=== PATIENT | female | born 1955 | race Caucasian/White ===

== ENCOUNTER 2017-05-19 07:59 | Emergency (ER) | payer OTHER ==
[~2017-05-19] VITALS: Ht 157.5 cm; Wt 64.5 kg
[~2017-05-19 07:59] MED LIST: ASPI-1182 PO; GLIP10TA9 PO; HYDR-4031 PO; LISI-618 PO; LOVA10TA2 PO; METF500T4 PO; NAPR-58 PO; RANI150T12 PO
[2017-05-19 08:27] LABS: GLUCOSE,POINT OF CARE 241 MG/DL (70-110)
[2017-05-19] MEDS ORDERED: LIDOCAINE HCL 1% 10 ML VIAL INJ ONE (10:30)
[2017-05-19 11:30] VITALS: BP 132/82
== END 2017-05-19 12:02 | disposition home or self-care (01) ==
LOC: EMS 08:01
DX: S01.81XA Laceration without foreign body of other part of head, initial encounter (principal); S20.211A Contusion of right front wall of thorax, initial encounter; E11.9 Type 2 diabetes mellitus without complications; I10 Essential (primary) hypertension; E78.00 Pure hypercholesterolemia, unspecified; F17.210 Nicotine dependence, cigarettes, uncomplicated; Z88.1 Allergy status to other antibiotic agents; Z91.041 Radiographic dye allergy status; V78.6XXA Passenger on bus injured in noncollision transport accident in traffic accident, initial encounter; Y93.89 Activity, other specified; Y92.89 Other specified places as the place of occurrence of the external cause; Y99.2 Volunteer activity
CPT/HCPCS: 12002; 70450; 70486; 71010; 82962; 99284; J3490

== ENCOUNTER 2017-05-24 10:38 | Emergency (ER) | payer OTHER ==
[~2017-05-24] VITALS: Ht 157.5 cm; Wt 65.0 kg
[2017-05-24 10:57] LABS: GLUCOSE,POINT OF CARE 196 MG/DL (70-110)
[2017-05-24] MEDS ORDERED: GABA-529 PO (10:59)
[2017-05-24] MEDS ORDERED: KETOROLAC TROMETHAMINE 30 MG/ML VIAL IVP ONE (11:30)
[2017-05-24 12:46] VITALS: BP 146/72
== END 2017-05-24 12:49 | disposition home or self-care (01) ==
LOC: EMS 10:42
DX: M54.5 Low back pain (principal); R11.0 Nausea; E11.9 Type 2 diabetes mellitus without complications; E78.00 Pure hypercholesterolemia, unspecified; I10 Essential (primary) hypertension; F17.210 Nicotine dependence, cigarettes, uncomplicated; Z48.02 Encounter for removal of sutures; Z88.5 Allergy status to narcotic agent; Z88.2 Allergy status to sulfonamides; Z88.6 Allergy status to analgesic agent; Z91.041 Radiographic dye allergy status; Z79.82 Long term (current) use of aspirin
CPT/HCPCS: 82962; 96374; 99284; J1885

== ENCOUNTER 2020-07-10 07:13 | Emergency (ER) | payer OTHER ==
[~2020-07-10] VITALS: Ht 162.6 cm; Wt 72.7 kg
[~2020-07-10 07:13] MED LIST changes: +ASPI-1111 PO; -ASPI-1182 PO; +GABA-1216 PO; +METF-960 PO; -METF500T4 PO; +NAPR-1025 PO; -NAPR-58 PO; +RANI-662 PO; -RANI150T12 PO
[2020-07-10] MEDS ORDERED: GABA-1181 PO (07:19)
[2020-07-10] MEDS ORDERED: FAMO20 PO (07:19)
[2020-07-10 07:44] LABS: GLUCOSE,POINT OF CARE 160 MG/DL (70-110)
[2020-07-10] MEDS ORDERED: HYDROCODONE/ACETAMINOPHEN 5-325 MG TABLET PO ONE (08:00)
[2020-07-10 09:01] VITALS: BP 144/94
== END 2020-07-10 09:15 | disposition home or self-care (01) ==
LOC: EMS 07:13
DX: S80.01XA Contusion of right knee, initial encounter (principal); S20.211A Contusion of right front wall of thorax, initial encounter; E11.9 Type 2 diabetes mellitus without complications; E78.00 Pure hypercholesterolemia, unspecified; I10 Essential (primary) hypertension; Z87.891 Personal history of nicotine dependence; Z79.899 Other long term (current) drug therapy; Z79.84 Long term (current) use of oral hypoglycemic drugs; Z79.82 Long term (current) use of aspirin; Z88.2 Allergy status to sulfonamides; Z88.5 Allergy status to narcotic agent; Z91.040 Latex allergy status; W19.XXXA Unspecified fall, initial encounter; Y93.9 Activity, unspecified; Y92.89 Other specified places as the place of occurrence of the external cause; Y99.8 Other external cause status
CPT/HCPCS: 71045-TC

== ENCOUNTER 2020-09-23 10:33 | Emergency (ER) | payer OTHER ==
[~2020-09-23] VITALS: Ht 144.8 cm; Wt 58.2 kg
[~2020-09-23 10:33] MED LIST changes: +FAMO20 PO; +GABA-1181 PO; -HYDR-4031 PO; -NAPR-1025 PO; -RANI-662 PO
[2020-09-23 10:51] VITALS: BP 146/61
[2020-09-23 10:53] LABS: GLUCOSE,POINT OF CARE 128 MG/DL (70-110)
[2020-09-23] MEDS ORDERED: NAPHAZOLINE/PHENIR 0.025-0.3% 15 ML OPHTHALMIC SOLUTION OU ONE (12:15)
[2020-09-23] MEDS ORDERED: OLOPATADINE HCL 0.1% 5 ML OPHTHALMIC SOLUTION OU ONE (12:30)
[2020-09-23] MEDS ORDERED: PROPARACAINE HCL 0.5% 15 ML OPHTHALMIC SOLUTION OU ONE (13:00)
[2020-09-23] MEDS ORDERED: FLUORESCEIN SODIUM 1 MG STRIP OD ONE (13:00)
[2020-09-23] MEDS ORDERED: ERYTHROMYCIN 0.5% 3.5 GM TUBE OPHTHALMIC OINTMENT OU ONE (13:15)
== END 2020-09-23 13:54 | disposition home or self-care (01) ==
LOC: EMS 10:43
DX: S05.02XA Injury of conjunctiva and corneal abrasion without foreign body, left eye, initial encounter (principal); S05.01XA Injury of conjunctiva and corneal abrasion without foreign body, right eye, initial encounter; H10.13 Acute atopic conjunctivitis, bilateral; J45.909 Unspecified asthma, uncomplicated; E11.9 Type 2 diabetes mellitus without complications; E78.00 Pure hypercholesterolemia, unspecified; I10 Essential (primary) hypertension; F17.210 Nicotine dependence, cigarettes, uncomplicated; Z90.89 Acquired absence of other organs; Z79.84 Long term (current) use of oral hypoglycemic drugs; Z79.82 Long term (current) use of aspirin; Z88.5 Allergy status to narcotic agent; Z91.041 Radiographic dye allergy status; Z91.040 Latex allergy status; Z88.6 Allergy status to analgesic agent; X58.XXXA Exposure to other specified factors, initial encounter; Y93.89 Activity, other specified; Y92.89 Other specified places as the place of occurrence of the external cause; Y99.8 Other external cause status

== ENCOUNTER 2021-08-29 18:04 | Emergency (ER) | payer MEDICARE, MEDICAID ==
[~2021-08-29] VITALS: Ht 157.5 cm; Wt 65.0 kg
[~2021-08-29 18:04] MED LIST changes: -ASPI-1111 PO; +ASPI-1444 PO; -LISI-618 PO; +LISI20TA24 PO; +METF-1211 PO; -METF-960 PO
[2021-08-29 18:31] LABS: BASOPHILS % (AUTO) 0.4 % (0.0-2.0); HEMATOCRIT 38.2 % (36-46); HEMOGLOBIN 13.1 g/dL (12.0-16.0); LYMPHOCYTES # (AUTO) 2.6 K/uL (1.0-4.8); LYMPHOCYTES % (AUTO) 22.2 % (22.0-44.0); MEAN CORPUSCULAR HEMOGLOBIN 31.6 pg (26.0-34.0); MEAN CORPUSCULAR HGB CONC 34.4 G/dL (31.0-37.0); MEAN CORPUSCULAR VOLUME 92 fL (80-100); MONOCYTES % (AUTO) 8.9 % (2.0-9.0); NEUTROPHILS # (AUTO) 7.7 K/uL (1.8-7.7); NEUTROPHILS % (AUTO) 66.5 % (40.0-70.0); PLATELET COUNT (AUTO) 340 K/uL (150-450); RED BLOOD CELL COUNT(AUTO) 4.15 MIL/uL (4.00-5.20); RED CELL DISTRIBUTION WIDTH 13.2 % (11.5-14.5)
[2021-08-29 18:39] LABS: ANION GAP 6 mmol/L (8-16); CALCIUM, TOTAL 9.2 mg/dL (8.8-10.5); CARBON DIOXIDE 30 mmol/L (22-29); CHLORIDE 98 mmol/L (98-107); CREATININE 0.79 mg/dL (0.60-1.30); GLOMERULAR FILTR. RATE CALC > 60 mL/min (>60); GLUCOSE,RANDOM 140 mg/dL (70-110); POTASSIUM 3.7 mmol/L (3.5-5.1); SODIUM SERUM 134 mmol/L (136-145); UREA NITROGEN, BLOOD 17 mg/dL (7-18)
[2021-08-29 18:40] LABS: PROTHROMBIN TIME 10.8 SEC (9.4-11.6)
[2021-08-29 19:04] LABS: ALANINE AMINOTRANSFERASE 30 U/L (12-78); ALBUMIN 4.2 g/dL (3.4-5.0); ALKALINE PHOSPHATASE 88 U/L (46-116); ASPARTATE AMINOTRANSFERASE 23 U/L (15-37); BILIRUBIN,TOTAL 0.3 mg/dL (0.1-1.0); CREATINE KINASE, TOTAL ONLY 137 U/L (26-192); PHOSPHORUS 3.7 mg/dL (2.5-4.9); TOTAL PROTEIN, SERUM 8.1 g/dL (6.4-8.2)
[2021-08-29 19:06] LABS: B-TYPE NATRIURETIC PEPTIDE 22 pg/mL (0-100)
[2021-08-29 19:33] LABS: APPEARANCE,URINE CLEAR (CLEAR); BILIRUBIN,URINE NEGATIVE (NEGATIVE); GLUCOSE, URINE (UA) 100 mg/dL (NEGATIVE); KETONES,URINE NEGATIVE (NEGATIVE); LEUKOCYTE ESTERASE ,URINE SMALL (NEGATIVE); NITRATE,URINE NEGATIVE (NEGATIVE); OCCULT BLOOD,URINE NEGATIVE (NEGATIVE); PH,URINE 7.5 (5.0-8.0); PROTEIN,URINE NEGATIVE (NEGATIVE); UROBILINOGEN,URINE 0.2 mg/dL (<=1.0)
[2021-08-29 19:58] LABS: RBC,URINE None Seen /HPF (0-2)
[2021-08-29 19:59] LABS: BACTERIA,URINE None Seen /HPF (None Seen)
[2021-08-29] MEDS: CEPHALEXIN MONOHYDRATE 500 MG CAPSULE PO ONE (20:21)
[2021-08-29] MEDS ORDERED: SODIUM CHLORIDE 0.9% 500 ML IV ONE (21:00)
[2021-08-29 22:14] VITALS: BP 133/77
[2021-09-02 13:51] LABS: GLUCOSE,POINT OF CARE 82 MG/DL (70-110)
[2021-09-02 13:51] LABS: GLUCOSE,POINT OF CARE 139 MG/DL (70-110)
[2021-09-02 13:51] LABS: GLUCOSE,POINT OF CARE 149 MG/DL (70-110)
== END 2021-08-29 23:38 | disposition home or self-care (01) ==
LOC: EDUNIT# 18:04 → EMS 18:06
DX: E11.65 Type 2 diabetes mellitus with hyperglycemia (principal); N39.0 Urinary tract infection, site not specified; E78.00 Pure hypercholesterolemia, unspecified; I10 Essential (primary) hypertension; F17.210 Nicotine dependence, cigarettes, uncomplicated; Z90.49 Acquired absence of other specified parts of digestive tract; Z79.84 Long term (current) use of oral hypoglycemic drugs
CPT/HCPCS: 71045; 80053; 81001; 82550; 82962; 83735; 83880; 84100; 84484; 85025; 85610; 85730; 87086; 93005; 99285; 36415-L1; 36415-TC

== ENCOUNTER 2022-10-26 11:58 | Emergency (ER) | payer MEDICARE, MEDICAID ==
[~2022-10-26] VITALS: Ht 157.5 cm; Wt 72.7 kg
[2022-10-26] MEDS ORDERED: ACETAMINOPHEN 500 MG TABLET PO ONE (13:15)
[2022-10-26] MEDS ORDERED: ACET-2080 PO (13:44)
[2022-10-26 14:30] VITALS: BP 132/70
== END 2022-10-26 14:31 | disposition home or self-care (01) ==
LOC: EMS 11:59
DX: S52.501A Unspecified fracture of the lower end of right radius, initial encounter for closed fracture (principal); J45.909 Unspecified asthma, uncomplicated; E11.9 Type 2 diabetes mellitus without complications; E78.00 Pure hypercholesterolemia, unspecified; I10 Essential (primary) hypertension; F17.210 Nicotine dependence, cigarettes, uncomplicated; Z98.890 Other specified postprocedural states; Z90.49 Acquired absence of other specified parts of digestive tract; Z91.040 Latex allergy status; Z88.2 Allergy status to sulfonamides; Z88.6 Allergy status to analgesic agent; Z88.8 Allergy status to other drugs, medicaments and biological substances; W18.30XA Fall on same level, unspecified, initial encounter; Y93.89 Activity, other specified; Y92.89 Other specified places as the place of occurrence of the external cause; Y99.8 Other external cause status
CPT/HCPCS: 99283

== ENCOUNTER 2022-11-08 14:23 | Emergency (ER) | payer MEDICARE, MEDICAID ==
[~2022-11-08] VITALS: Ht 157.5 cm; Wt 54.5 kg
[~2022-11-08 14:23] MED LIST changes: +ACET-2080 PO
[2022-11-08 14:26] VITALS: BP 140/62
[2022-11-08] MEDS ORDERED: HYDROmorphone HCL 2 MG/ML SYRINGE IM ONE (15:15)
== END 2022-11-08 17:08 | disposition home or self-care (01) ==
LOC: EMS 14:41
DX: S52.91XD Unspecified fracture of right forearm, subsequent encounter for closed fracture with routine healing (principal); J45.909 Unspecified asthma, uncomplicated; E11.9 Type 2 diabetes mellitus without complications; E78.00 Pure hypercholesterolemia, unspecified; I10 Essential (primary) hypertension; F17.210 Nicotine dependence, cigarettes, uncomplicated; Z90.49 Acquired absence of other specified parts of digestive tract; Z98.890 Other specified postprocedural states; Z91.040 Latex allergy status; Z88.2 Allergy status to sulfonamides; Z88.5 Allergy status to narcotic agent; Z88.6 Allergy status to analgesic agent; Z47.89 Encounter for other orthopedic aftercare; X58.XXXD Exposure to other specified factors, subsequent encounter
CPT/HCPCS: 99283; 96372; J1170

== ENCOUNTER 2025-02-06 12:14 | Emergency (ER) | payer MEDICARE, MEDICAID ==
[~2025-02-06] VITALS: Ht 162.6 cm; Wt 70.5 kg
[~2025-02-06 12:14] MED LIST changes: +GLIP10TA16 PO; -GLIP10TA9 PO
[2025-02-06 12:59] VITALS: TEMP 98.2
[2025-02-06 13:16] LABS: GLUCOMETER DEV NAME(LOC) ER.7; GLUCOSE,POINT OF CARE 118 MG/DL (70-110)
[2025-02-06] MEDS ORDERED: OMEP20CA12 PO (14:30)
[2025-02-06] MEDS ORDERED: NYST15PO3 TP (14:30)
[2025-02-06] MEDS ORDERED: FAMO40TA7 PO (14:30)
[2025-02-06] MEDS ORDERED: LORA-997 PO (14:30)
[2025-02-06] MEDS ORDERED: TRI115O TP (14:30)
[2025-02-06] MEDS ORDERED: BETA15OI30 TP (14:30)
[2025-02-06] MEDS ORDERED: CETI10TA58 PO (14:30)
[2025-02-06] MEDS ORDERED: METF-446 PO (14:30)
[2025-02-06] MEDS ORDERED: MELO-106 PO (14:30)
[2025-02-06] MEDS ORDERED: CALC-1271 PO (14:30)
[2025-02-06] MEDS ORDERED: FLUT1BLS11 PO (14:30)
[2025-02-06] MEDS ORDERED: ALBU18HF12 IH (14:30)
[2025-02-06] MEDS ORDERED: ATOR40TA71 PO (14:30)
[2025-02-06] MEDS ORDERED: LISI40TA9 PO (14:30)
[2025-02-06] MEDS ORDERED: IBUP-1492 PO (14:32)
[2025-02-06] MEDS: IBUPROFEN 600 MG TABLET PO ONE (14:33)
[2025-02-06 14:44] VITALS: BP 159/75; PULSE 84; RESP 18; O2SAT 96
== END 2025-02-06 14:46 | disposition home or self-care (01) ==
LOC: EMS 12:18
DX: S01.01XA Laceration without foreign body of scalp, initial encounter (principal); E11.9 Type 2 diabetes mellitus without complications; I10 Essential (primary) hypertension; J45.909 Unspecified asthma, uncomplicated; E78.00 Pure hypercholesterolemia, unspecified; F17.210 Nicotine dependence, cigarettes, uncomplicated; Z88.2 Allergy status to sulfonamides; Z88.5 Allergy status to narcotic agent; Z91.041 Radiographic dye allergy status; Z91.040 Latex allergy status; Z79.82 Long term (current) use of aspirin; Z79.84 Long term (current) use of oral hypoglycemic drugs; Z90.49 Acquired absence of other specified parts of digestive tract; Z79.899 Other long term (current) drug therapy; W22.8XXA Striking against or struck by other objects, initial encounter; Y93.89 Activity, other specified; Y92.89 Other specified places as the place of occurrence of the external cause; Y99.8 Other external cause status
CPT/HCPCS: 12001; 82962; 99282